=== PATIENT | male | born 1960 | race Caucasian/White ===

== ENCOUNTER → 2020-12-23 09:33 | Outpatient (CLI) | payer OTHER, SELFPAY ==
[2020-12-23 10:53] LABS: Add Manual Diff / Slide Review NO; Basophils Absolute Auto 0 /uL (0-100); Basophils Percent Auto 0.7 % (0-2); Eosinophils Absolute Auto 100 /uL (0-450); Eosinophils Percent Auto 2.6 % (2-4); Hematocrit 43.2 % (41-53); Hemoglobin 14.7 g/dL (13.5-17.5); Lymphocytes Absolute Auto 1200 /uL (1100-4500); Lymphocytes Percent Auto 20.8 % (25-40); Mean Corpuscular Hemoglobin 29.9 PG (26-34); Mean Corpuscular Volume 88.1 fL (80-100); Monocytes Absolute Auto 400 /uL (0-900); Monocytes Percent Auto 6.4 % (3-14); Neutrophils Absolute Auto 3900 /uL (1500-7000); Neutrophils Percent Auto 69.5 % (50-75); Platelet Count 206 X10^3/uL (150-400); Red Blood Cell Count 4.91 X10^6/uL (4.5-5.9); Red Cell Distribution Width 13.8 % (11.6-14.8); White Blood Cell Count 5.7 X10^3/uL (4.5-11.0)
[2020-12-23 11:03] LABS: Hemoglobin A1C% w Est Avg Glu 7.6 % (4.0-6.0)
[2020-12-23 11:36] LABS: BUN Creatinine Ratio 15.9 (6-22); Blood Urea Nitrogen 14 mg/dL (9-20); Calcium 8.9 mg/dL (8.4-10.2); Carbon Dioxide 30 mmol/L (22-32); Chloride 100 mmol/L (98-107); Estimated Glomerular Filt Rate > 60.0 mL/min (>60); Glucose 215 mg/dL (70-100); HEMOLYSIS < 15 (0-50); Potassium 3.9 mmol/L (3.4-5.1); Sodium 137 mmol/L (137-145)
== END ==
PROVIDERS: Family Provider Family Medicine; PCP Family Medicine; Referring Provider Orthopaedic Surgery; Visit Provider Orthopaedic Surgery
DX: Z01.818 Encounter for other preprocedural examination (principal); Z01.812 Encounter for preprocedural laboratory examination; R73.9 Hyperglycemia, unspecified
CPT/HCPCS: 36415; 80048; 83036; 85025; 93005; 93010

== ENCOUNTER → 2021-01-06 11:31 | Outpatient (CLI) | payer OTHER, SELFPAY ==
[2021-01-06 13:28] LABS: COVID19 -Nasal RAPID Negative (Negative)
== END ==
PROVIDERS: Referring Provider Orthopaedic Surgery; Visit Provider Nurse Practitioner
DX: Z20.822 Contact with and (suspected) exposure to COVID-19 (principal); Z01.812 Encounter for preprocedural laboratory examination
CPT/HCPCS: 87635

== ENCOUNTER 2021-01-09 06:10 | Day surgery (SDC) | payer OTHER, SELFPAY ==
[2021-01-05 13:22] VITALS: BMI 38.9
[2021-01-09] VITALS (18 sets, daily range): BP systolic 126–161; BP diastolic 68–91; PULSE 20–90; RESP 12–20; TEMP 35.6–37.1; O2SAT 92–100; BMI 38.9
--- NOTE | 2021-01-09 06:48 | DI.RAD.S_ITS ---
PROCEDURE: XR KNEE RT 1TO2V INDICATIONS: postop prosthesis placement TECHNIQUE: 2 view(s) of the knee acquired. COMPARISON: None. FINDINGS: Bones: Patient is status post knee joint arthroplasty. Hardware components are in expected positions. Visualized bony structures are intact. Soft tissues: Overlying postoperative changes are noted. IMPRESSION: Expected postoperative appearance status post knee replacement. Dictated by: Leif Oswald M.D. on 01/09/2021 at 11:33 Approved by: Leif Oswald M.D. on 01/09/2021 at 11:34
[2021-01-09] MEDS: LACTATED RINGERS 1,000 ML 42 ML IV ×2 (07:32→09:53)
--- NOTE | 2021-01-09 07:35 | PM.PREOP ---
Pre-operative Note COVID-19 COVID-19 status: Negative Result date/Date tested (Pos, Neg/Pending): 01/06/21 Interval Note History & Physical reviewed/Exam performed by Physician: Yes Changes to H&P: No
[2021-01-09] MEDS: CELECOXIB 200 MG CAPSULE PO (07:49)
[2021-01-09] MEDS: ACETAMINOPHEN 325 MG TABLET 975 MG PO (07:49)
[2021-01-09] MEDS: PREGABALIN 75 MG CAPSULE PO (07:49)
[2021-01-09 07:52] LABS: COVID19 -Nasal RAPID Negative (Negative)
--- NOTE | 2021-01-09 07:55 | SUR.PREOP ---
0750 Waiting on repeat covid test result. (neg) - Pharmacy brings Ancef 3 gm to pre-op then pt to OR
[2021-01-09] MEDS: CEFAZOLIN 3 GM IN 0.9 % NACL 100 ML IV (08:08)
[2021-01-09] MEDS: TRANEXAMIC ACID 1,000 MG VIAL 1000 MG INJ ×2 (08:16→09:21)
--- NOTE | 2021-01-09 08:26 | SUR.OPER ---
Supine on padded OR bed. Pillow under head, arms secured on padded armboards <90 degree abduction. Safety belt across torso. Non-operative leg secured with tape over blanket over lower leg. Operative leg secured in DeMayo/Mamadou/Nathe positioner.
[2021-01-09] MEDS: MORPHINE 4 MG/ML INJ INJ (08:38)
[2021-01-09] MEDS: BUPIVACAINE LIPOSOME 266 MG/20 ML VIAL INJ (08:38)
[2021-01-09] MEDS: EPINEPHrine 1 MG/ML 0.3 MG INJ (08:42)
[2021-01-09] MEDS: BUPIVACAINE 0.25% (PF) VIAL 60 ML INJ (08:44)
--- NOTE | 2021-01-09 10:09 | P.OP_ITS ---
Operative Date/Time/Diagnoses Date of procedure: 01/09/21 Time of procedure: 10:10 Pre-op diagnosis: Right knee osteoarthritis with retained tibial katie Post-op diagnosis: same Procedure & Clinicians Procedure: 1. Right total knee replacement 2. Removal of tibial katie Same procedure as scheduled: Yes Indications: The patient has had progressively worsening right knee pain with radiographic changes consistent with arthritis. Non-operative management has failed and the patient has requested total knee replacement. He has a tibial katie in place and is aware this must be removed to allow placement of the total knee. Risks, benefits and alternatives to surgery were discussed with the patient prior to proceeding. Risks discussed included, but were not limited to, failure to relieve pain, stiffness, infection, nerve damage, deep venous thrombosis, pulmonary embolism, stroke, coma, heart attack, permanent paralysis and , as well as the potential need for eventual revision of the prosthetic. Surgeon: Eamon Littlejohn Forensic Technician: Marlon Santiago Click Yes if Unassisted: No Anesthesia Type: General, Spinal and Local Operative Notes Findings: Straightforward removal of tibial katie, knee was notable for significant medial and moderately severe patellofemoral osteoarthritis. Closure Type: primary Specimen(s): other (Tibial katie) Prosthetic devices, grafts, tissues, transplants, or devices: Implants used in this procedure were manufactured by the [employer] and included the BCS II Journey total knee replacement with a size 6 right Oxinium femoral component, a size 6 right non porous tibial base plate, a 9 mm cross- linked polyethylene insert and a 35 mm oval Lien II patella. In addition the tibial katie was removed. There was a small fragment of interlock screw that had broken off in a previous surgery when the screws were removed. This remained in place. Applied: implant(s) Estimated Blood Loss (mL): 25 Blood products transfused: none Tourniquet time (min): 60 Procedure in detail: The patient was seen in the pre-operative area, where the patient identified the right knee as the operative site and this was marked with my initials. The patient received pre-operative antibiotics, and was taken to the operating room and placed on the operative table in the supine position. After satisfactory anesthesia, a university archivist out was performed. The right leg was encircled with a tourniquet about the proximal thigh, and the leg was prepared from the toes to the tourniquet with ChloraPrep in the usual fashion and draped through sterile drapes. The leg was elevated and exsanguinated with Eschmark bandage and the tourniquet inflated to 250 mmHg pressure. The knee was approached through an approximately 18 cm incision centered over the patella and carried into the knee through a medial parapatellar arthrotomy. The anterior osteophytes and soft tissues were removed. Upon removal of the fat pad, the proximal end of the tibial katie was readily visible. Bone that had grown over the end was removed with a rongeur and soft tissue in the threads of the katie was removed with a curette. The removal jig was then threaded into the katie. A couple of taps in the anterograde direction were used to help loosen up any bone that was in the interlock screw holes. The katie was then backed out of the tibial canal with minimal difficulty. The rotational landmarks of Dare's line and the transepicondylar axis were marked on the femur with electrocautery, and intramedullary guide holes for the femur and tibia were created. The distal femoral cut was made in 6 degrees of valgus using the intramedullary guide at the primary cut setting. The proximal tibial cut was then made using the intramedullary guide, taking 9 mm of bone off the less involved side. The extension gap was checked and the rotation of the femoral component confirmed with the gap balancing system. The anterior, posterior and chamfer cuts were then made. The posterior osteophytes and soft tissues were then removed. The posterior capsule was injected with part of a mixture of 60 ml 0.25% Marcaine mixed with 20 ml Exparel and 4 mg of morphine for post-operative pain control. The remainder of this mixture was injected into the capsule and subcutaneous tissues during cement curing. The tibia was prepared with the rotation set by an extra medullary guide. Trial tibial and femoral components were then placed and the intercondylar notch cut through the femoral trial. Range of motion was 0-135 degrees, with good stability throughout the range. The patella was then cut to accommodate the patellar prosthetic. There was no need for a lateral release. The trials were then removed, and the femoral hole plugged with a bone plug. The bone was prepared with pulsatile lavage, and dried with a sponge. Cement was applied and the final prosthetics placed. Excess cement was removed during and after cement curing. After confirming there was no extruded cement posteriorly, the final tibial insert was placed. The knee was copiously irrigated and the tourniquet deflated. Hemostasis was obtained. The hole for the katie in the tib ial tubercle was also plugged using bone from the chamfer cuts. The capsule was closed with interrupted # 2 polyester suture. The subcutaneous layer was closed with 3-0 Vicryl, and the skin with a running 3-0 V-Lock suture and SteriStrips. An Aquacel Ag dressing was applied and the patient was taken to recovery having tolerated the procedure well. Complications: none Post-operative Condition: stable Disposition: PACU Plan for aftercare: The patient will be maintained on a standard total knee replacement protocol with weight bearing as tolerated. The patient will receive aspirin and sequential compression devices for DVT prophylaxis. The patient will be discharged home when safe for the home environment.
--- NOTE | 2021-01-09 10:35 | SUR.PHASEI ---
Patient transferred in bed to room 211. SBAR report to Piper CARRASCO. Patient pulse now palpable and feet warm. Transferred with both cell phone and blood glucose monitor in hand. Bed in low position. Call light in reach.
--- NOTE | 2021-01-09 10:36 | SUR.PHASEI ---
Patient from OR with Dr Evans and Jolly CARRASCO. Pt awake, alert. Dr glover to bedside to update patient and view x-ray. MD aware of cool feet, slow cap refill and very faint pulses. Warm blankets to feet.
[2021-01-09] MEDS: LACTATED RINGERS 1,000 ML 100 ML IV ×2 (11:00→19:54)
--- NOTE | 2021-01-09 13:25 | PT.IIE ---
Current Diagnoses Unilateral primary osteoarthritis, right knee (01/09/21) Presence of other bone and tendon implants (01/09/21) Surgery Performed Operation Date: 01/09/21 07:45 Actual Procedures p Total Knee Arthroplasty, Tibia Vernon Removal(Right) - Eamon Littlejohn MD Medical History (Last Updated 01/05/21 @ 09:24 by Kenya Layton RN) Arthritis Central sleep apnea Chronic pain Depression Diabetes (~2006) Diabetic neuropathy GERD (gastroesophageal reflux disease) HLD (hyperlipidemia) HTN (hypertension) Osteoarthritis Presence of device Physical Therapy Inpatient Evaluation/Re-Eval M1 PT/OT-IP Prior Functional Status Start: 01/09/21 10:32 Freq: NEEDED Status: Active Protocol: Document 01/09/21 11:45 AW (Rec: 01/09/21 11:50 AW [id number]) Medical Review Prior Functional Status Medical History Reviewed Yes Communication WNl. Pt is an effective verbal communicator. Mobility and Gait Independent without assistive device. Pt states he could walk up to 1/4 mile but with significant knee pain. Activities of Daily Living and IADL's Independent but with occasional assist for LB dressing due to back pain. 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 Prior Functional Level (Other details) Pt has history or right tibia fracture and IM vernon in 2012 with subsequent infections and I&D's. He is admitted now for TKA which involves removal of tibial vernon. Social History Household Members spouse Living Arrangements House Number of Floors (Floors) One Floor Number of Stairs To Enter/Railing? Pt states there is one small curb to negotiate in order to access the patio. No stairs after that. Home Environment Standard Height Toilet,Walk in Shower Home Equipment Front Wheel Walker,Straight Cane,Pig Sticker Employment Status Unemployed Additional Social History Comment Pt sleeps in either his bed or a recliner. He can use a door knob adjacent to his toilet to assist in getting up and down. He lives with his spouse , Ashley, who is home film editor and will be available/able to assist as needed at discharge . M2 PT-IP Current Condition Start: 01/09/21 10:32 Freq: NEEDED Status: Active Protocol: Document 01/09/21 13:25 AW (Rec: 01/09/21 13:44 AW [id number]) Physical Therapy Current Condition Current Condition Evaluation Date 01/09/21 Treatment Diagnosis s/p R TKA and tibial vernon removal; difficulty in walking Onset Date 01/09/21 Weight Bearing Status Weight Bearing Status Weight Bear as Tolerated M3 PT-IP Subjective Start: 01/09/21 10:32 Freq: NEEDED Status: Active Protocol: Document 01/09/21 13:25 AW (Rec: 01/09/21 13:44 AW [id number]) Subjective Physical Therapy Visit Type Visit Start Time 11:37 Visit Stop Time 13:25 Total Visit Minutes 28 Notes Split visits [id number] and [id number]. SPT Mariama was present and assisted with line management. Number of GRAPHICS SPECIALIST Visits 0 Physical Therapy Visit Comments Patient Comments I'm not sure I'm ready to do much but I'll try. Patient Goals Return home with spouse support. Therapy Pain Assessment Pain When Pain Assessed During Mobility Pain Present Pain Present Pain Reported Location right knee Intensity 2 Scale Used Numeric (0 - 10) Pain Management Techniques Apply Cold,Re-positioning M4 PT-IP Mobility and Gait Start: 01/09/21 10:32 Freq: NEEDED Status: Active Protocol: Document 01/09/21 13:25 AW (Rec: 01/09/21 13:44 AW [id number]) PT-Bed Mobility Assessment Supine to Sit Supine to Sit Contact Guard Assistance Sit to Supine Sit to Supine Contact Guard Assistance Scooting Scooting to Edge of Bed Minimal Assistance Scooting Up and Down in Bed Standby Assistance PT-Transfer Assessment Sit to and From Stand Sit to and from Stand Minimal Assistance,2 Person Assistance,Use of Upper Extremities Equipment Transfer Assistive Device Gait Belt,Front Wheeled Walker Orthotic/Prosthetic Devices or Brace: No Comments Mobility Comments Pt was lying in bed as PT arrived. BP 136/78 HR 70. He reported ongoing fuzzy/numb feeling in BLE but was interested in trying to stand. He completed supine to sit CGA and required cues to limit active straight leg RLE to reduce strain. Pt required min assist to scoot toward EOB by pulling on FWW as PT and SPT stabilized. Educated pt to use BUE to push from the bed instead and he completed scooting with BUE push off. Pt began to complain of mild lightheadedness. BP was assessed 156/78 HR 75 and symptoms waned. Pt required min A x 2 and max cues for knee extension. Pt stood for 60 seconds but was unable to progress to transfer. BP was stable as pt sat and completed sit to supine CGA. Pt was left with call light and tray table in reach. Gait Assessment Comments Gait Comments Unable to progress to gait or transfers due to persistent numbness BLE. PT-Balance Assessment Sitting Balance and Reactions Static Sitting Balance Ability Good Dynamic Sitting Balance Ability Good Standing Balance and Reactions Static Standing Balance Ability Fair Device Used FWW M5 PT-IP Objective Assessments Start: 01/09/21 10:32 Freq: NEEDED Status: Active Protocol: Document 01/09/21 13:25 AW (Rec: 01/09/21 13:44 AW [id number]) Orientation Orientation/Cognition Level of Alertness Alert Orientation Name,Day of Week,Place, Situation Language Function Ability No Deficits Noted Safety Awareness Understands Safety Issues Memory Description No Deficits Noted Gross Range of Motion Lower Extremity ROM Assessment Right Impaired Strength Lower Extremity Strength Assessment Right Impaired Comments Strength Comments LLE hip flexion 5/5, knee extension and flexion 4+/5, ankle DF 4+/5 Sensation Assessment Sensation Gross Sensation Right LE Impaired,Left LE Impaired Light Touch Impaired Proprioception (Position) Impaired Sensation Description Numbness Muscle Tone Muscle Tone WNL Yes M6 PT-IP Treatment Start: 01/09/21 10:32 Freq: NEEDED Status: Active Protocol: Document 01/09/21 13:25 AW (Rec: 01/09/21 13:44 AW [id number]) Physical Therapy Treatment Exercises Exercises Ankle Pumps,Quad Sets,Heel Slides,Passive Knee Extension Hang Education Education Provided Weight Bearing Status,Post-Op Packet,Safety Other Treatments Other Treatment Performed Educated pt on PT plan of care , weightbearing status, ROM focus in early stages of rehab , and safe use of FWW. M7 PT-IP Assessment and Plan Start: 01/09/21 10:32 Freq: NEEDED Status: Active Protocol: Document 01/09/21 13:25 AW (Rec: 01/09/21 13:44 AW [id number]) PT Summary Assessment and Plan Potential Rehabilitation Potential Good Status of Condition at Evaluation Evolving Summary Impairments Pain,ROM,Strength,Balance, Sensation,Bed Mobility, Transfers,Gait Assessment Summary Eamon is a 60 yo man seen for PT evaluation on POD0 following R TKA. He does not use any assistive device at baseline and is typically independent with ADL and IADL needs. He had persistent numbness in BLE on assessment and was limited to standing EOB with min assist x 2. PT anticipates pt will progress during his hospital stay and be safe to discharge home with assist and outpatient PT once medically stable. He has OP PT set up already and his is available to assist at home. Goals Bed Mobility Goal Independent Transfer Goal Standby Assistance,Front Wheeled Walker Gait Goal Standby Assistance,Front Wheel Walker Gait Distance 200 Other Goals - up/down single step with FWW SBA Days to Meet Goals 2 Frequency of Treatment Frequency Of Treatment Twice a Day Treatment Plan Physical Therapy Treatment Plan Bed Mobility Training,Transfer Training,Gait Training, Therapeutic Exercise,Post Op Education,Discharge Planning, Hot or Cold Pack Other Recommendations and Next Treatment assess transfers and gait, Focus progress to step if able. Precautions Other Precautions WBAT RLE Recommendations To Nursing Amount of Assist Needed 2 Person Assist Discharge Recommendations PT Discharge Recommendations Home with Assistance, Outpatient PT Transportation Needs at Discharge Private Vehicle
[2021-01-09] MEDS: INFLUENZA VACCINE QIV 0.5 ML SYRINGE IM (14:07)
[2021-01-09] MEDS: ACETAMINOPHEN 325 MG TABLET 650 MG PO ×2 (14:55→20:08)
[2021-01-09] MEDS: METHADONE 5 MG TABLET PO ×2 (14:55→20:10)
[2021-01-09] MEDS: OXYCODONE IR 10 MG TABLET 15 MG PO (15:54)
[2021-01-09] MEDS: OXYCODONE IR 5 MG TABLET 15 MG PO ×2 (19:53→23:26)
[2021-01-09] MEDS: ROPINIROLE 1 MG TABLET 2 MG PO (20:07)
[2021-01-09] MEDS: PREGABALIN 25 MG CAPSULE 50 MG PO (20:07)
[2021-01-09] MEDS: DOCUSATE 100 MG CAPSULE PO ×2 (20:08)
[2021-01-09] MEDS: METFORMIN HCL 500 MG TABLET 1000 MG PO (20:08)
[2021-01-09] MEDS: ASPIRIN EC 81 MG TABLET PO (20:09)
[2021-01-09] MEDS: PRAVASTATIN 20 MG TABLET 40 MG PO (20:09)
[2021-01-09] MEDS: hydrOXYzine pamoate 25 MG CAPSULE PO (20:15)
--- NOTE | 2021-01-10 01:50 | PC.NURSE ---
Patient is alert and oriented. Breath sounds CTA with RA sat of 93%. HRR. Denied nausea. BT hypoactive but states he is passing flatus. Denied dysuria, frequency or urgency with urination. Is able to move self in bed. Reported he is able to get up with walker and 1 assist to stand at bedside to urinate. Aquacel dressing to right knee covered with iveth wrap is CDI. Complained of pain in knee and was medicated at 2326 with oxycodone and ice applied. Good motion in right LE but reports chronic numbness of right great toe and pedal pulse is weaker on right vs left. Is wearing bilateral calf SCD's. Fall risk score is high and bed alarm is activated.
[2021-01-10] MEDS: OXYCODONE IR 5 MG TABLET 15 MG PO ×3 (02:48→09:47)
[2021-01-10 03:30] VITALS: BP 130/82; PULSE 87; RESP 18; TEMP 36.5; O2SAT 99
[2021-01-10] MEDS: PANTOPRAZOLE DR 20 MG TABLET PO (05:54)
[2021-01-10] MEDS: hydrOXYzine pamoate 25 MG CAPSULE PO ×2 (06:41→12:15)
[2021-01-10 07:25] VITALS: BP 166/90; PULSE 99; RESP 16; TEMP 36.1; O2SAT 94
[2021-01-10] MEDS: HYDROMORPHONE 2 MG TABLET PO ×2 (07:41→12:15)
[2021-01-10] MEDS: ACETAMINOPHEN 325 MG TABLET 650 MG PO (07:41)
[2021-01-10] MEDS: METFORMIN HCL 500 MG TABLET 1000 MG PO (07:42)
[2021-01-10] MEDS: ASPIRIN EC 81 MG TABLET PO (07:42)
[2021-01-10] MEDS: ROPINIROLE 1 MG TABLET 2 MG PO (07:42)
[2021-01-10] MEDS: DOCUSATE 100 MG CAPSULE PO (07:42)
[2021-01-10 07:56] LABS: Hemoglobin 13.8 g/dL (13.5-17.5)
--- NOTE | 2021-01-10 09:14 | P.DS_ITS ---
History of Present Illness History of Present Illness Date Patient Seen: 01/10/21 Time Patient Seen: 09:14 Chief complaint: OPB Narrative: The history and physical is contained in the chart previously completed note. Please refer to that note for this information. Discharge Providers Provider Date of admission: January 09, 2021 Discharge Date: 01/10/21 Primary care physician: Humberto Lamb MD Consults: 01/09/21 10:38 Consult to Discharge Planning Routine Comment: Consult to Physical Therapy Evaluate & Treat Comment: Physician Instructions: postop TKA protocol Discharge provider: Eamon Littlejohn MD Summary Hospital Course Discharge Diagnosis: Right knee osteoarthritis with retained tibial katie Hospital Course: The patient was admitted to the hospital and taken directly to the operating room on January 09, 2021. He underwent the removal of his right tibial katie followed immediately by right total knee replacement. There were no complications of this. Postoperative course was marked by significant pain control issues due to his chronic narcotic use for chronic pain. His pain medications were adjusted on the morning of postoperative day 1 and at the time of this dictation the plan is for him to discharge home later in the afternoon. Status at Discharge Cognitive/behavioral status at discharge: at baseline, oriented Functional status at discharge: uses cane/walker Overall status at discharge: patient is progressing back to baseline Time Spent with Patient Time spent: Less than 30 minutes Exam Vital Signs (past 8 hours): - 01/10/21 03:30 01/10/21 07:25 Temperature 97.7 F 97.0 F L Pulse Rate 87 99 H Respiratory Rate 18 16 Blood Pressure 130/82 166/90 H Pulse Oximetry 99 94 Oxygen Delivery Method Room Air Oxygen Flow Rate 0 Narrative Exam Narrative: Right knee wound is dressed with no drainage on the bandage. Calf is soft. Light touch and motion are intact in the right lower extremity. Objective Labs Result Diagrams: 01/10/21 07:25 Labs: Laboratory Results - last 24 hr 01/10/21 07:25 Hgb 13.8 Hct 41.0 PFSH Medical History (Updated 01/05/21 @ 09:24 by Kenya Layton RN) Arthritis Central sleep apnea Chronic pain Depression Diabetes (~2006) Diabetic neuropathy GERD (gastroesophageal reflux disease) HLD (hyperlipidemia) HTN (hypertension) Osteoarthritis Presence of device Surgical History (Updated 01/05/21 @ 09:24 by Kenya A Bear, RN) H/O right wrist surgery (01/1995) History of surgery History of surgery Hx of arthroscopy of right knee Hx of bilateral cataract extraction (04/2020) Hx of laminectomy (2008) Social History household members: spouse Smoking Status: Never smoker alcohol intake: current Discharge Assessment & Plan Assessment and Plan Assessment: Stable postoperative day 1 status post total knee replacement and removal of tibial katie. Major issue for him is pain control. Plan of Treatment: I have increased his methadone from 5 mg t.i.d. to 5 mg q.i.d.. He will be discharged with the increased methadone dose and with 10 mg of oxycodone as needed for breakthrough pain. He also has been instructed in the use of Tylenol and meloxicam for pain relief and low-dose aspirin for DVT prophylaxis. Follow- up will be in my office in 10-14 days. Discharge Plan Discharge Plan Patient Disposition: Home Discharge orders & Medications Discharge Orders: Discharge (Order); Ordered 01/10/21 Ordered By: Eamon Littlejohn Prescriptions: New acetaminophen 325 mg Tablet 650 mg PO TID 30 Days Qty: 180 RF: 0 aspirin 81 mg Tablet,Delayed Release (Dr/Ec) 81 mg PO BID 42 Days Qty: 84 RF: 0 methadone 5 mg Tablet 5 mg PO QID Qty: 30 RF: 0 oxycodone 5 mg Tablet 10 mg PO Q4HR PRN (Reason: Pain, Severe (7-10)) Qty: 60 RF: 0 hydroxyzine pamoate 25 mg Capsule 25 mg PO Q6HR PRN (Reason: Nausea) Qty: 40 RF: 0 Continued duloxetine [Cymbalta] 60 MG capsule,delayed release(DR/EC) 90 mg PO QDAY Qty: 0 RF: 0 lisinopril 20 MG tablet 60 mg PO QDAY Qty: 0 RF: 0 atenolol 50 MG tablet 50 mg PO QDAY Qty: 0 RF: 0 metformin 500 mg Tablet 1,000 mg PO BID RF: 0 ropinirole 1 mg Tablet 2 mg PO BID RF: 0 pravastatin 40 mg Tablet 40 mg PO QPM RF: 0 meloxicam 15 mg Tablet 15 mg PO DAILY RF: 0 hydrochlorothiazide 25 mg Tablet 25 mg PO DAILY RF: 0 pioglitazone 30 mg Tablet 30 mg PO DAILY RF: 0 Humalog U-100 Insulin 100 unit/mL Cartridge 1.7 - 2.75 unit SUBCUT DIRECTED RF: 0 omeprazole 20 mg Tablet,Delayed Release (Dr/Ec) 20 mg PO QPM RF: 0 pregabalin 25 mg Capsule 50 mg PO BEDTIME RF: 0 Discontinued oxycodone 5 mg Tablet 2.5 - 5 mg PO Q6H PRN (Reason: Pain) Qty: 0 RF: 0 aspirin [Aspirin Low-Strength] 81 mg Tablet,Delayed Release (Dr/Ec) 81 mg PO Q OTHER DAY RF: 0 methadone 5 mg Tablet 5 mg PO TID RF: 0 Follow up/Referrals: Eamon Littlejohn MD [Physician] - 2 Weeks Humberto Lamb MD [Primary Care Provider] - Diet/Activity/Treatments Diet: Diet as Tolerated and Carb-consistent/Diabetic Cold/Heat Therapy: Apply ice for 15 minutes every hour to the right knee for pain control as needed. Skin/Wound/Dressing Care Report to your healthcare provider any signs of infection, such as:: chills, f ever, night sweats, increased pain, unusual drainage and unusual redness Dressing: You may remove the Skip wrap 3 days after surgery and shower normally with the deeper dressing in place. Leave the deeper dressing in place until your postoperative follow-up. If the central strip of the deeper dressing becomes saturated with either water or blood, please call the office to have it evaluated. Visit Report/Discharge Packet Instructions: DI for Knee Replacement Stand Alone Forms: Surgery Discharge Discharge Data Primary Care Provider: Humberto Lamb Attending Provider: Eamon Littlejohn Quality VTE Deep Vein Thrombosis/Pulmonary Embolism Present on Admission: No
[2021-01-10 09:41] VITALS: BP 166/90
[2021-01-10] MEDS: MELOXICAM 7.5 MG TABLET 15 MG PO (09:41)
[2021-01-10] MEDS: lisinopriL 20 MG TABLET 60 MG PO (09:41)
[2021-01-10] MEDS: hydroCHLOROthiazide 25 MG TABLET PO (09:41)
[2021-01-10] MEDS: DULOXETINE 30 MG CAPSULE 90 MG PO (09:41)
[2021-01-10] MEDS: atenoloL 50 MG TABLET PO (09:42)
--- NOTE | 2021-01-10 09:44 | PT.IPTN ---
Current Diagnoses Unilateral primary osteoarthritis, right knee (01/09/21) Presence of other bone and tendon implants (01/09/21) Surgery Performed Operation Date: 01/09/21 07:45 Actual Procedures p Total Knee Arthroplasty, Tibia Katie Removal(Right) - Eamon Littlejohn MD Physical Therapy Treatment Note M2 PT-IP Current Condition Start: 01/09/21 10:32 Freq: NEEDED Status: Active Protocol: Document 01/09/21 13:25 AW (Rec: 01/09/21 13:44 AW [id number]) Physical Therapy Current Condition Current Condition Evaluation Date 01/09/21 Treatment Diagnosis s/p R TKA and tibial katie removal; difficulty in walking Onset Date 01/09/21 Weight Bearing Status Weight Bearing Status Weight Bear as Tolerated M3 PT-IP Subjective Start: 01/09/21 10:32 Freq: NEEDED Status: Active Protocol: Document 01/10/21 09:18 KS (Rec: 01/10/21 11:59 KS [id number]) Subjective Physical Therapy Visit Type Type Treatment Note Visit Start Time 09:18 Visit Stop Time 09:44 Total Visit Minutes 26 Number of COMMODITY LEAD Visits 1 Physical Therapy Visit Comments Patient Comments Pt agreeable to working with PT. Patient Goals Return home with spouse support. Therapy Pain Assessment Pain When Pain Assessed During Mobility Pain Present Pain Present Pain Reported Location right knee Intensity 6 Scale Used Numeric (0 - 10) Pain Behaviors Facial Grimacing,Guarding, Wincing Pain Management Techniques Distraction,Elevation,Re- positioning,Timing of Activity with Medications M4 PT-IP Mobility and Gait Start: 01/09/21 10:32 Freq: NEEDED Status: Active Protocol: Document 01/10/21 09:18 KS (Rec: 01/10/21 11:59 KS [id number]) PT-Bed Mobility Assessment Rolling Level of Assist Contact Guard Assistance Supine to Sit Supine to Sit Contact Guard Assistance Sit to Supine Sit to Supine Contact Guard Assistance Scooting Scooting to Edge of Bed Standby Assistance Scooting Up and Down in Bed Standby Assistance PT-Transfer Assessment Sit to and From Stand Sit to and from Stand Contact Guard Assistance,1 Person Assistance,Use of Upper Extremities Equipment Transfer Assistive Device Gait Belt,Front Wheeled Walker Orthotic/Prosthetic Devices or Brace: No Transfers Transfer Destination Bed Transfer Technique pt ambulated w/ FWW Transfer Ability Level of Assist Standby Assistance,Contact Guard Assistance,Use of Upper Extremities Comments Mobility Comments Pt in bed upon arrival from therapy. Pt CGA w/ use of gait belt for self assist of RLE for sup<>sit from flat bed. PT able to scoot to EOB SBA. CGA and cues for sit<>stand w/ FWW. Pt complains of increased pain when standing. Pt then ambulated ~50 [address] in hallway w/ FWW and CGA. Pt demonstrated step to gait pattern, but was able to improve to step thru pattern w/ cues. Pt demonstrated good use of FWW. Upon return to room, pt stand< >sit CGA w/ cues. Pt then took 2 min seated rest break before completing 1 step. Pt CGA sit<>stand, then CGA and cues for sequencing to ascend and descend 1 step w/ FWW. Pt stated he feels perfectly capable to complete small curb step at home and that his can drive the car close to the door. Educated pt on getting into and out of car, reveiwed LE exercises to improve strength and mobility. Pt denied SCDs, left in bed w / all needs in reach. Gait Assessment Gait Gait Assistance Required: Contact Guard Assist,1 Person Assist Distance (Feet) 50 Able to Maintain Weight Bearing Status Yes During Gait Assistive Devices Assistive Device Gait Belt,Front Wheeled Walker Orthotic/Prosthetic Devices or Brace: No Gait Deviations General Gait Pattern Antalgic,Decreased Stride Length,Decreased Feet Clearance,Step-to Gait Factors Limiting Gait Function Factors Limiting Gait Function Decreased Activity Tolerance, Decreased Strength,Pain Comments Gait Comments Please refer to mobility section for details. Stair Climbing Assessment Evaluation Level of Assist On Stairs Contact Guard Assistance,1 Person Assistance Devices Stair Climbing Assistive Devices Front Wheel Walker Technique/Endurance Stair Climbing Direction Ascend and Descend Stair Climbing Technique Step to Step Number of Steps Climbed 1 Stair Climbing Set # Repetitions (reps) 1 Comments Stair Climbing Comments Pt ascended/descended 1 step w / CGA and cues for leg sequencing. PT-Balance Assessment Sitting Balance and Reactions Static Sitting Balance Ability Good Dynamic Sitting Balance Ability Good Standing Balance and Reactions Static Standing Balance Ability Good Dynamic Standing Balance Ability Fair Device Used FWW M5 PT-IP Objective Assessments Start: 01/09/21 10:32 Freq: NEEDED Status: Active Protocol: Document 01/09/21 13:25 AW (Rec: 01/09/21 13:44 AW [id number]) Orientation Orientation/Cognition Level of Alertness Alert Orientation Name,Day of Week,Place, Situation Language Function Ability No Deficits Noted Safety Awareness Understands Safety Issues Memory Description No Deficits Noted Gross Range of Motion Lower Extremity ROM Assessment Right Impaired Strength Lower Extremity Strength Assessment Right Impaired Comments Strength Comments LLE hip flexion 5/5, knee extension and flexion 4+/5, ankle DF 4+/5 Sensation Assessment Sensation Gross Sensation Right LE Impaired,Left LE Impaired Light Touch Impaired Proprioception (Position) Impaired Sensation Description Numbness Muscle Tone Muscle Tone WNL Yes M6 PT-IP Treatment Start: 01/09/21 10:32 Freq: NEEDED Status: Active Protocol: Document 01/10/21 09:18 KS (Rec: 01/10/21 11:59 KS [id number]) Physical Therapy Treatment Exercises Exercises Ankle Pumps,Gluteal Sets,Quad Sets,Heel Slides,Straight Leg Raises Education Education Provided Weight Bearing Status,Post-Op Packet,Safety Other Treatments Other Treatment Performed Educated pt on PT plan of care , weightbearing status, ROM focus in early stages of rehab , and safe use of FWW. M7 PT-IP Assessment and Plan Start: 01/09/21 10:32 Freq: NEEDED Status: Active Protocol: Document 01/10/21 09:18 KS (Rec: 01/10/21 11:59 KS [id number]) PT Summary Assessment and Plan Potential Rehabilitation Potential Good Status of Condition at Evaluation Evolving Summary Impairments Pain,ROM,Strength,Balance, Sensation,Bed Mobility, Transfers,Gait Progress Towards Goals Progressing Toward Goals Assessment Summary Pt able to show improvements with mobility and ambulation today. CGA for bed mobility, pt utilized gait belt for self assist of RLE. CGA and cues for transfers and ambulation w / FWW. Pt tolerated ~50 ft ambulation w/ FWW and 1x platform step w/ CGA and cues for leg sequencing. Pt improved gait from step to to step through pattern. Reveiwed safety and LE exercises to improve strength and ROM. Pt stated he feels safe to return home w/ and will benefit from outpatient rehab which he already has set up. Goals Bed Mobility Goal Independent Transfer Goal Standby Assistance,Front Wheeled Walker Gait Goal Standby Assistance,Front Wheel Walker Gait Distance 200 Other Goals - up/down single step with FWW SBA Days to Meet Goals 2 Frequency of Treatment Frequency Of Treatment Twice a Day Treatment Plan Physical Therapy Treatment Plan Bed Mobility Training,Transfer Training,Gait Training, Therapeutic Exercise,Post Op Education,Discharge Planning, Hot or Cold Pack Other Recommendations and Next Treatment Further ambulation w/ FWW Focus Precautions Other Precautions WBAT RLE Recommendations To Nursing Amount of Assist Needed 1 Person Assist Discharge Recommendations PT Discharge Recommendations Home with Assistance, Outpatient PT Transportation Needs at Discharge Private Vehicle
[2021-01-10] MEDS: PIOGLITAZONE 15 MG TABLET 30 MG PO (09:46)
[2021-01-10] MEDS: SODIUM CHLORIDE 0.9% FLUSH 10 ML IV (09:47)
[2021-01-10] MEDS: METHADONE 5 MG TABLET PO (09:47)
[2021-01-10 10:05] VITALS: BP 178/93; PULSE 86
[2021-01-10 11:49] VITALS: BP 181/90; PULSE 82; RESP 18; TEMP 36.7; O2SAT 95
--- NOTE | 2021-01-10 12:45 | CM.DANOTE ---
Patient is a 60 yo male who was admitted on 01/09/21 for RTKA and removal of tibial katie. Pt has L&I for insurance and his PCP is Humberto Lamb. EMR was reviewed. Per Ortho, pt tolerated procedure well and had some pain management issues but now stable for d/c home with spouse assist and outpt follow up. Per PT, recommending safe d/c home with spouse assist and outpt PT. SW met bedside with pt and spouse and explained role and RN is about to provide d/c instructions and they confirm they live at home in [place] and pt is mostly independent at baseline but has had increased pain prior to this surgery and was needing increased assist from spouse. Pt denies any hx of HH or SNF and is already established with outpt PT and has first appointment on Mon this next week. Pt drives and sometimes uses a cane for longer distances at baseline. Spouse confirms that she is not working and available for assist 24/ at d/c and no anticipated discharge planning needs. Plan: Patient to d/c home today via spouse POV and outpt Ortho f/u and outpt PT already set up. No further SW needs at this time. YAZ Mortensen Discharge Planning/Care Management Advanced directive, confirm from FAMILY Start: 01/09/21 11:18 Freq: Q24H Status: Active Protocol: Document 01/09/21 11:18 [facility] (Rec: 01/09/21 15:20 Naveen [id number]) Advance Directive, confirm on record Time 10:30 Person contacted patient Copy received No Advanced directive available on record No CM Discharge Assessment Start: 01/10/21 12:43 Freq: Status: Active Protocol: Document 01/10/21 12:43 BF (Rec: 01/10/21 12:45 BF [id number]) Discharge Planning Assessment Assigned Professional Bass Fisherman YAZ Gipson DPOA/Assigned Designee Name spotaj Ramirez Contact Information [phone] Advance Directives? Yes Advance Directives on File No History Provided By Patient,Significant Other, Medical Record Has Patient been admitted in last 30 No days? Prior Living Arrangements House Household Members spouse Type of transporation used prior to Drives own vehicle admit Independent with ADL's Yes Is patient alert and oriented? Yes Caregiver for Another No Community Services used prior to Physical Therapy admission: DME Already Rented / Owned FWW / Walker,Cane Patient/Family Preference OP PT Therapy Barriers to Discharge No Discharge Plan Home Community Services Physical Therapy Transportation Arrangement Spouse bedside and providing transport today Referrals Initiated None needed Whiteboard Updated in Patient Room with Yes name and ext. # of Professional Bass Fisherman Review Status In Process Please Provide Date Initial DC 01/10/21 Assessment Was Performed Next Review Type Continued Stay Review Pre-Anesthesia Assessment Start: 01/05/21 07:59 Freq: Status: Complete Protocol: Document 01/05/21 13:22 CAB (Rec: 01/05/21 09:51 CAB [id number]) Pre-Anesthesia Assessment PAC Comment Anesthesia review recommends post-op pain management from PCP. I emailed surgeon's office for PCP records and/or clearance, have not received to date. 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 Required No Height 175.26 cm Weight 119.748 kg Body Mass Index (BMI) 38.9 Hearing Ability Hard of Hearing,Use of Hearing Aid Visual Impairment No Limitations Dentition Type Teeth, Natural Present Barriers to Learning None Comment Does not wear hearing aids Hx Anesthesia Reactions No Hx Family Anesthesia Reaction No Hx Malignant Hyperthermia No Hx Blood Transfusions No Anesthesia Review Requested Yes: Reviewed prior to being scheduled for surgery, ok to proceed alcohol intake current alcohol intake frequency holidays/special occasions only Smoking Status Never smoker Substance Use Type does not use Pain Present Pain Reported Musculoskeletal Symptoms Abnormal Gait,Back Pain, Difficulty Walking,Joint Pain, Numbness History of Falling (Recent or History of No ) Patient is completely paralyzed or No completely immobile Mental Status Oriented to own ability Is patient on oxygen? 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 No Cardiac Clearance Received Not Applicable Diet Type At Home Regular dysphagia No Gastrointestinal Symptoms Reflux Urinary Catheter Present No Hx Urinary Self Catheterization No Diabetes Yes HgbA1C 7.6 Date 12/23/20 Hx Drug Resistant Organism No: MRSA left hand 2010 Presence of External or Internal Medical Yes: Hasmukh IOLs, Devices Have you had any close contact with No someone diagnosed with COVID-19? Received a COVID vaccine? Yes: Moderna Received all doses? Yes Marital Status Lives With spouse Prior Living Arrangements House Number of Floors (Floors) One Floor Support System Spouse Does the Patient Have Assistance After Yes Surgery Patient Discharge Plan Description Return Home Comment Pt advised 1 night length of stay per surgeon Feels Safe in Current Environment Yes Been Physically Hurt or Threatened By a No Person in Current Environment Do you have thoughts of harming yourself None or others? Are you currently considering suicide? No Do you have a plan to hurt yourself or No Plan others? Do You Have Any Spiritual Beliefs That No May Affect Your HC Choices? Do You Have Any Cultural Practices That No May Affect Your HC Choices? Comment Buddhism Who Can We Speak to About Patient's Care Family, friends Identifying Code for Release of Patient Declines to issue Information Health Care Proxy/Next of Kin Ashley () Health Care Proxy Emergency Contact Name Ashley () Emergency Contact Advance Directives? No Power of Plant Operations Manager No PAC Instructions Diabetes instructions,Durable medical equipment,Medications to take/avoid,Nasal antibiotic ,No ETOH/petroleum product on skin DOS,NPO,Sturdy shoes/ comfortable clothes,Do not bring valuables and remove jewelry
--- NOTE | 2021-01-10 15:55 | PC.NURSE ---
Late entry for 12 noon: discharged home with driving. Reviewed discharge instructions with patient and including activity, diet, dressing care, showering, medications to continue and meds to discontinue, plan for follow up, signs and symptoms of infection to report and also discharge instructions for opioid prescriptions. IV discontinued. Tamiko CRAIG wheeled patient to car. took all belongings.
== END 2021-01-10 12:05 | disposition home or self-care (01) ==
LOC: OR 06:11 → AC 06:11
PROVIDERS: Family Provider Family Medicine; PCP Family Medicine; Referring Provider Orthopaedic Surgery; Visit Provider Orthopaedic Surgery
PROC: (CPT 27447; principal; 2021-01-09 07:45)
DX: M17.11 Unilateral primary osteoarthritis, right knee (principal); T84.84XA Pain due to internal orthopedic prosthetic devices, implants and grafts, initial encounter; G89.28 Other chronic postprocedural pain; Z96.7 Presence of other bone and tendon implants; Z23 Encounter for immunization; G89.4 Chronic pain syndrome; M54.50 Low back pain, unspecified; Z79.891 Long term (current) use of opiate analgesic; E11.9 Type 2 diabetes mellitus without complications; Z79.84 Long term (current) use of oral hypoglycemic drugs; Z79.4 Long term (current) use of insulin; I10 Essential (primary) hypertension; E78.5 Hyperlipidemia, unspecified; G47.33 Obstructive sleep apnea (adult) (pediatric); F32.9 Major depressive disorder, single episode, unspecified
CPT/HCPCS: 27447; 20680; 36415; 73560; 82962; 85014; 85018; 87635; 90471; 90656; 94762; 97116; 97161; 97530; C1776; C9803; C9290; J0171; J0690; J1815; J2250; J2270; J2274; J2405; J2704; J3010; Q2038